=== PATIENT | male | born 1990 | race Two or more races ===

== ENCOUNTER 2020-07-17 06:46 | Emergency (ER) | payer BC, OTHER ==
[~2020-07-17] VITALS: Ht 193 cm; Wt 104.3 kg
[2020-07-17] MEDS ORDERED: HYDROcodone-ACET 5/325MG TAB PO ONE (08:00)
[2020-07-17 08:06] LABS: Basophils # (auto) 0.1 10 ^3/uL (0-0.2); Basophils % (auto) 0.8 % (0.0-2.0); Eosinophils # (auto) 0.2 10 ^3/uL (0-0.8); Eosinophils % (auto) 2.3 % (0.0-7.0); Hematocrit 44.4 % (41.0-53.0); Hemoglobin 15.3 g/dL (13.5-17.5); Lymphocytes # (auto) 2.6 10 ^3/uL (0.4-5.4); Lymphocytes % (auto) 27.2 % (10.0-50.0); Mean Corpuscular Hemoglobin 28.4 pg (28.0-32.0); Mean Corpuscular Hgb Conc. 34.5 g/dL (32.0-36.0); Mean Corpuscular Volume 82.2 fL (80.0-100.0); Monocytes # (auto) 0.8 10 ^3/uL (0-1.3); Monocytes % (auto) 8.6 % (0.0-12.0); Neutrophils # (auto) 5.8 10 ^3/uL (1.6-8.6); Neutrophils % (auto) 61.1 % (37.0-80.0); Nucleated Red Blood Cells % 0.1 %; Platelet Count (auto) 384 10^3/uL (140-450); Red Cell Distribution Width 14.2 % (11.8-14.3); White Blood Cell 9.5 10^3/uL (4.4-10.8)
[2020-07-17 08:33] LABS: Albumin 3.8 g/dL (3.4-5.0); Calcium 9.3 mg/dL (8.5-10.1); Potassium 4.3 mmol/L (3.5-5.1)
[2020-07-17 08:37] LABS: Bilirubin, Total 0.7 mg/dL (0.2-1.0); Total Protein 9.4 g/dL (6.4-8.2)
[2020-07-17] MEDS ORDERED: IOHEXOL 300 MG/ML 100ML BOTTLE IJ ONE (08:45)
[2020-07-17 09:35] VITALS: BP 143/87
== END 2020-07-17 09:45 | disposition home or self-care (01) ==
LOC: ER 06:46
DX: R07.81 Pleurodynia (principal); M25.512 Pain in left shoulder; M25.522 Pain in left elbow; Z88.1 Allergy status to other antibiotic agents; V28.4XXA Motorcycle driver injured in noncollision transport accident in traffic accident, initial encounter; Y93.89 Activity, other specified; Y92.410 Unspecified street and highway as the place of occurrence of the external cause; Y99.8 Other external cause status
CPT/HCPCS: 36415; 71260; 73030; 73080; 74177; 80053; 85025; 99285; Q9967